=== PATIENT | female | born 1985 | race Caucasian/White ===

== ENCOUNTER → 2024-10-21 | Outpatient (CLI) | payer OTHER, SELFPAY ==
--- NOTE | 2024-10-21 13:19 | BI_ITS ---
EXAM: DIAG MAMM W/CAD, UNILAT; BREAST LIMITED UNILATERAL; RT BRST UNILAT CYNTHIA ADD-ON 10/21/2024 CLINICAL HISTORY: 39-year-old female presents for palpable concern in the superior right breast. Family history of breast cancer in a paternal grandmother. TECHNIQUE: Right diagnostic digital breast tomosynthesis with 2D and 3D images. Computer aided detection. Also, targeted right breast ultrasound was performed. COMPARISON: Prior exam(s) dated 02/25/2024 and 03/22/2024. FINDINGS: TISSUE DENSITY: The breast tissue is extremely dense which lowers the sensitivity of mammography. The mammogram demonstrates that the patient has dense breasts. Supplemental screening with whole breast ultrasound or MRI may be considered for further evaluation. Bilateral Breast Mammographic Findings: There is a triangle skin marker indicating the area of palpable concern in the central outer right breast. Underlying the skin marker is an obscured round mass. Also, there is a biopsy marker clip with adjacent calcifications in the upper slightly outer right breast at middle depth. Ultrasound: Ultrasound performed of the superior right breast. In the area of patient's palpable concern in the right breast at 12 o'clock 3 cm from the nipple there is an cyst measuring 1.4 x 1.4 x 1.0 cm, this is not significantly changed when compared to prior ultrasound of 03/22/2024. Also, there are 2 additional small cysts seen in the right breast at 10 o'clock 3 cm from the nipple measuring 0.8 x 0.6 x 0.4 cm and at 11 o'clock 3 cm from the nipple measuring 0.8 x 0.7 x 0.5 cm. BI/DIAG MAMM W/CAD, UNILAT IMPRESSION: The patient's area of palpable concern in the right breast corresponds to a nahun ign cyst, which is not significantly changed when compared to prior examination of 03/22/2024. There are additional benign cysts seen in the right breast. Right Breast: BIRADS 2 BENIGN FINDING. OVERALL FINAL ASSESSMENT: BIRADS 2 BENIGN FINDING. RECOMMENDATION: Routine annual follow-up in 5 months A letter with findings and recommendations will be mailed to the patient. Reading Location: [facility]
--- NOTE | 2024-10-21 13:19 | BI_ITS ---
EXAM: DIAG MAMM W/CAD, UNILAT; BREAST LIMITED UNILATERAL; RT BRST UNILAT CYNTHIA ADD-ON 10/21/2024 CLINICAL HISTORY: 39-year-old female presents for palpable concern in the superior right breast. Family history of breast cancer in a paternal grandmother. TECHNIQUE: Right diagnostic digital breast tomosynthesis with 2D and 3D images. Computer aided detection. Also, targeted right breast ultrasound was performed. COMPARISON: Prior exam(s) dated 02/25/2024 and 03/22/2024. FINDINGS: TISSUE DENSITY: The breast tissue is extremely dense which lowers the sensitivity of mammography. The mammogram demonstrates that the patient has dense breasts. Supplemental screening with whole breast ultrasound or MRI may be considered for further evaluation. Bilateral Breast Mammographic Findings: There is a triangle skin marker indicating the area of palpable concern in the central outer right breast. Underlying the skin marker is an obscured round mass. Also, there is a biopsy marker clip with adjacent calcifications in the upper slightly outer right breast at middle depth. Ultrasound: Ultrasound performed of the superior right breast. In the area of patient's palpable concern in the right breast at 12 o'clock 3 cm from the nipple there is an cyst measuring 1.4 x 1.4 x 1.0 cm, this is not significantly changed when compared to prior ultrasound of 03/22/2024. Also, there are 2 additional small cysts seen in the right breast at 10 o'clock 3 cm from the nipple measuring 0.8 x 0.6 x 0.4 cm and at 11 o'clock 3 cm from the nipple measuring 0.8 x 0.7 x 0.5 cm. BI/Rt Brst Unilat Cynthia Add-On IMPRESSION: The patient's area of palpable concern in the right breast corresponds to a nahun ign cyst, which is not significantly changed when compared to prior examination of 03/22/2024. There are additional benign cysts seen in the right breast. Right Breast: BIRADS 2 BENIGN FINDING. OVERALL FINAL ASSESSMENT: BIRADS 2 BENIGN FINDING. RECOMMENDATION: Routine annual follow-up in 5 months A letter with findings and recommendations will be mailed to the patient. Reading Location: [facility]
== END | disposition home or self-care (01) ==
LOC: OPBI 13:16
PROVIDERS: PCP Nurse Practitioner Primary Care; Referring Provider Nurse Practitioner Family; Visit Provider Nurse Practitioner Family
DX: N63.11 Unspecified lump in the right breast, upper outer quadrant (principal); N64.4 Mastodynia
CPT/HCPCS: 76642; 77061; 77065; G0279